=== PATIENT | female | born 1965 | race Hispanic/Latino ===

== ENCOUNTER → 2022-07-18 | Day surgery (SDC) | payer OTHER ==
[~2022-07-18] MED LIST: ALENDRONATE SOD70 MG PO; CELEBREX100 MG PO; CEPHALEXIN500 MG PO; GABAPENTIN300 MG PO; GLYCOPYRROLATE INJ 0.2 MG/ML VIAL ONE; JARDIANCE25 MG PO; LEVEMIR100 UNIT/1 SC; LIDOCAINE HCL 2% LOCAL INJ 5 ML SDV VIAL INJ ONE; LIPITOR10 MG PO; LISINOPRIL-HCT1 EAC1 PO; PANTOPRAZOLE SO40 MG PO; POVIDONE IODINE 0.05% 0.05 % ML PO ONE; PROPOFOL IV EMULSION 10 MG/ML 20 ML VIAL ONE; TIZANIDINE HCL4 M1 PO; TRULICITY1.5 MG/0.5 SC; VIT D2 PO
[2022-07-18 15:09] VITALS: TEMP 97.1
[2022-07-18 15:40] VITALS: BP 129/90; PULSE 80; RESP 16; O2SAT 99
== END | disposition home or self-care (01) ==
LOC: OR 12:15
PROVIDERS: ATTEND Internal Medicine Gastroenterology
DX: K29.50 Unspecified chronic gastritis without bleeding (principal); K22.89 Other specified disease of esophagus; R19.5 Other fecal abnormalities; K59.09 Other constipation; K62.5 Hemorrhage of anus and rectum; Z71.3 Dietary counseling and surveillance; E11.9 Type 2 diabetes mellitus without complications; I10 Essential (primary) hypertension; Z71.89 Other specified counseling; E78.00 Pure hypercholesterolemia, unspecified; E66.01 Morbid (severe) obesity due to excess calories; F17.210 Nicotine dependence, cigarettes, uncomplicated; Z71.6 Tobacco abuse counseling; Z01.810 Encounter for preprocedural cardiovascular examination; Z79.4 Long term (current) use of insulin; Z79.899 Other long term (current) drug therapy; Z79.84 Long term (current) use of oral hypoglycemic drugs; Z68.42 Body mass index [BMI] 45.0-49.9, adult
CPT/HCPCS: 36415; 43239; 82948; 93005; C9113; J2001; J2704; 43235

== ENCOUNTER → 2022-07-25 | Outpatient (CLI) | payer OTHER ==
[~2022-07-25] MED LIST changes: -GLYCOPYRROLATE INJ 0.2 MG/ML VIAL ONE; +IOPAMIDOL 370 MG/ML 100 ML INFUS..BTL INJ ONE; -LIDOCAINE HCL 2% LOCAL INJ 5 ML SDV VIAL INJ ONE; -POVIDONE IODINE 0.05% 0.05 % ML PO ONE; -PROPOFOL IV EMULSION 10 MG/ML 20 ML VIAL ONE
[2022-07-25 16:43] LABS: CREATININE, SERUM 0.72 mg/dL (0.57-1.11)
== END ==
LOC: CT 15:58
PROVIDERS: ATTEND Nurse Practitioner
DX: R11.0 Nausea (principal); K29.70 Gastritis, unspecified, without bleeding; R10.84 Generalized abdominal pain; K92.1 Melena
CPT/HCPCS: 36415; 74177; 82565; 84520; Q9967